=== PATIENT | male | born 1995 | race Caucasian/White ===

== ENCOUNTER 2021-08-22 18:55 | Emergency (ER) | payer OTHER ==
[~2021-08-22] VITALS: Ht 165.1 cm; Wt 59.0 kg
== END 2021-08-22 21:50 | disposition home or self-care (01) ==
LOC: ER 18:55
DX: M94.0 Chondrocostal junction syndrome [Tietze] (principal); R07.89 Other chest pain

== ENCOUNTER 2021-10-10 00:33 | Emergency (ER) | payer OTHER ==
[~2021-10-10] VITALS: Ht 165.1 cm; Wt 57.2 kg
[2021-10-10] MEDS ORDERED: ALBUTEROL2.5 MG/3 M IH (05:26)
[2021-10-10] MEDS ORDERED: ZYNCOF 20-400120 ML PO (05:26)
== END 2021-10-10 05:37 | disposition home or self-care (01) ==
LOC: ER 00:33
DX: R06.02 Shortness of breath (principal); R53.83 Other fatigue; R05.9 Cough, unspecified; Z03.818 Encounter for observation for suspected exposure to other biological agents ruled out

== ENCOUNTER 2022-01-12 01:46 | Emergency (ER) | payer OTHER ==
[~2022-01-12] VITALS: Ht 165.1 cm; Wt 57.2 kg
[~2022-01-12 01:46] MED LIST: ALBUTEROL2.5 MG/3 M IH; ZYNCOF 20-400120 ML PO
[2022-01-12] MEDS ORDERED: SYNTHROID50 MCG (02:29)
[2022-01-12] MEDS ORDERED: BUTALBITAL-ASA1 EACH PO (06:36)
== END 2022-01-12 06:45 | disposition home or self-care (01) ==
LOC: ER 01:46
DX: G44.89 Other headache syndrome (principal); E03.9 Hypothyroidism, unspecified; Z20.822 Contact with and (suspected) exposure to COVID-19

== ENCOUNTER 2022-05-01 16:08 | Emergency (ER) | payer OTHER ==
[~2022-05-01] VITALS: Ht 165.1 cm; Wt 49.9 kg
[~2022-05-01 16:08] MED LIST changes: +BUTALBITAL-ASA1 EACH PO; +SYNTHROID50 MCG
[2022-05-01] MEDS ORDERED: LEVOTHYROXINE25 MCG PO (16:51)
[2022-05-01] MEDS ORDERED: CARDIZEM30 MG PO (16:51)
[2022-05-01] MEDS ORDERED: ELIQUIS2.5 MG PO (16:51)
== END 2022-05-01 20:08 | disposition home or self-care (01) ==
LOC: ER 16:08
DX: R07.89 Other chest pain (principal); R11.0 Nausea; R42 Dizziness and giddiness

== ENCOUNTER 2024-05-06 20:15 | Inpatient (IN) | payer OTHER ==
[~2024-05-06] VITALS: Ht 167.6 cm; Wt 72.6 kg
[~2024-05-06 20:15] MED LIST changes: +CARDIZEM30 MG PO; +DOLOGESIC-DF 51 EACH PO; +ELIQUIS2.5 MG PO; +LEVOTHYROXINE25 MCG PO
[2024-05-06] MEDS ORDERED: TOPROL XL50 M1 (20:20)
[2024-05-06] MEDS ORDERED: FLECAINIDE ACE100 MG PO (20:20)
[2024-05-06] MEDS ORDERED: NITROGLYCERIN0.4 MG SL (20:20)
[2024-05-06 21:28] LABS: HEMATOCRIT 44.4 % (39.0-48.0); HEMOGLOBIN 15.1 g/dL (13-16.00); MEAN CELL VOLUME 89.5 fL (80.0-100.00); MEAN CORPUSCULAR HEMOGLOBIN 30.5 pg (27.00-32.0); MEAN CORPUSCULAR HGB CONC 34.1 g/dl (32.0-36.0); PLATELET COUNT 239 K/uL (150-450); RED BLOOD COUNT 4.96 M/uL (4.00-6.00); RED CELL DISTRIBUTION WIDTH 13.8 % (11.5-14.5)
[2024-05-06 21:48] LABS: INR 0.97; PARTIAL THROMBOPLASTIN TIME 27.3 SECONDS (22.0-34.0); PROTHROMBIN TIME 10.6 SECONDS (9.0-11.5)
[2024-05-06 21:53] LABS: ALBUMIN 4.1 gm/dL (3.4-5.0); BILIRUBIN TOTAL 0.32 mg/dL (0.3-1.2); CALCIUM 9.6 mg/dL (8.5-10.1); CREATININE SERUM 0.99 mg/dL (0.70-1.30); GFR 90.68; GLOBULINA 3.8 G/DL (2.4-3.5); POTASSIUM 3.98 mEq/L (3.5-5.1); TOTAL PROTEIN 7.9 gm/dL (6.4-8.2)
[2024-05-06] MEDS ORDERED: ATORVASTATIN CALCIUM 40 MG TABLET PO SCH (23:07)
[2024-05-06] MEDS ORDERED: CLOPIDOGREL BISULFATE 75 MG TABLET PO SCH (23:12)
[2024-05-06] MEDS ORDERED: NITROGLYCERIN IN 5 % DEXTROSE 250 ML IV SCH (23:13)
[2024-05-06] MEDS ORDERED: 0.9 % SODIUM CHLORIDE 1,000 ML IV SCH (23:15)
[2024-05-06] MEDS ORDERED: ACETAMINOPHEN 500 MG GEL..CAP PO PRN (23:15)
[2024-05-06] MEDS ORDERED: NITROGLYCERIN IN 5 % DEXTROSE 50 MG/250 ML BOTTLE IV ONE (23:33)
[2024-05-06] MEDS ORDERED: CLOPIDOGREL BISULFATE 75 MG TABLET PO ONE (23:33)
[2024-05-07 01:10] LABS: COCAINE NEGATIVE (NEGATIVE); METHADONE NEGATIVE (NEGATIVE); OPIATES NEGATIVE (NEGATIVE); THC ( Cannabinoids) NEGATIVE (NEGATIVE)
[2024-05-07] MEDS ORDERED: ACETAMINOPHEN 500 MG GEL..CAP PO ONE (01:39)
[2024-05-07] MEDS ORDERED: NITROGLYCERIN IN 5 % DEXTROSE 250 ML IV SCH (06:30)
[2024-05-07] MEDS ORDERED: ENOXAPARIN SODIUM 40 MG/0.4 ML SYRINGE SUBCUTANEO SCH (09:00)
[2024-05-07] MEDS ORDERED: METOPROLOL SUCCINATE 25 MG TAB.SR.24H PO SCH (09:00)
[2024-05-07] MEDS ORDERED: FAMOTIDINE/PF 20 MG in 0.9 % SODIUM CHLORIDE 8 ML IV PUSH SCH ×2 (09:00→21:00)
[2024-05-07] MEDS ORDERED: ASPIRIN 81 MG TAB.CHEW PO SCH (09:00)
[2024-05-07] MEDS ORDERED: METOPROLOL SUCCINATE 50 MG TAB.SR.24H PO SCH (17:00)
[2024-05-07] MEDS ORDERED: FAMOTIDINE/PF 20 MG/2 ML VIAL ONE (19:48)
[2024-05-08] MEDS ORDERED: FAMOTIDINE/PF 20 MG/2 ML VIAL ONE ×2 (08:57→20:48)
[2024-05-09] MEDS ORDERED: LEVOTHYROXINE SODIUM 25 MCG TABLET PO SCH (06:00)
[2024-05-09] MEDS ORDERED: FAMOTIDINE/PF 20 MG/2 ML VIAL ONE ×2 (12:00→20:22)
[2024-05-10] MEDS ORDERED: FAMOTIDINE/PF 20 MG/2 ML VIAL ONE (16:38)
[2024-05-11] MEDS ORDERED: FAMOTIDINE/PF 20 MG/2 ML VIAL ONE (08:23)
== END 2024-05-11 11:31 | disposition home or self-care (01) | DRG 311 ==
LOC: ER 20:16 → ICU-2 23:17 → MEDJ 23:17
PROVIDERS: Emergency Medicine; General Practice; ADMIT Internal Medicine; ATTEND Internal Medicine
PROC: B24BZZZ Ultrasonography of Heart with Aorta (ICD-10-PCS; principal; 2024-05-06)
PROC: 4A12X4Z Monitoring of Cardiac Electrical Activity, External Approach (ICD-10-PCS; 2024-05-07)
PROC: C23GYZZ Positron Emission Tomographic (PET) Imaging of Myocardium using Other Radionuclide (ICD-10-PCS; 2024-05-10)
DX: I20.0 Unstable angina (principal); I48.3 Typical atrial flutter

== ENCOUNTER 2025-02-21 08:50 | Emergency (ER) | payer OTHER ==
[~2025-02-21] VITALS: Ht 167.6 cm; Wt 73.9 kg
[~2025-02-21 08:50] MED LIST changes: +FLECAINIDE ACE100 MG PO; +NITROGLYCERIN0.4 MG SL; +TOPROL XL50 M1
[2025-02-21] MEDS ORDERED: TOPROL XL100 M1 PO (09:15)
[2025-02-21] MEDS ORDERED: SYNTHROID100 MCG PO (09:15)
[2025-02-21] MEDS ORDERED: LIPITOR20 MG PO (09:18)
[2025-02-21] MEDS ORDERED: PAXIL20 MG (09:18)
[2025-02-21 11:06] LABS: EOS # 0.19 (0.04-0.54); EOS % 2.5 % (0.7-7.0); HEMATOCRIT 46.9 % (40.1-51.0); HEMOGLOBIN 15.6 g/dL (13.7-17.5); LYMPH # 2.18 (1.18-3.74); LYMPH % 28.2 % (19.3-53.1); MEAN CORPUSCULAR HEMOGLOBIN 28.4 pg (25.6-32.2); MONO # 0.77 (0.24-0.82); NEUT # 4.47 (1.56-6.13); NEUT % 57.9 % (34.0-71.1); PLATELET COUNT 259 K/uL (163-369); RED BLOOD COUNT 5.49 M/uL (4.63-6.08); RED CELL DISTRIBUTION WIDTH 12.4 % (11.6-14.4)
[2025-02-21 12:11] LABS: ALBUMIN 4.3 gm/dL (3.4-5.0); BILIRUBIN TOTAL 0.61 mg/dL (0.3-1.2); CALCIUM 9.9 mg/dL (8.5-10.1); CREATININE SERUM 0.77 mg/dL (0.70-1.30); GFR 120.3; GLOBULINA 3.8 G/DL (2.4-3.5); POTASSIUM 5.05 mEq/L (3.5-5.1); TOTAL PROTEIN 8.1 gm/dL (6.4-8.2)
[2025-02-21] MEDS ORDERED: ACETAMINOPHEN 500 MG GEL..CAP PO ONE ×2 (15:00→15:10)
[2025-02-21] MEDS ORDERED: PROTONIX40 MG PO (15:17)
[2025-02-21] MEDS ORDERED: CARAFATE1 GM PO (15:17)
[2025-02-21] MEDS ORDERED: PEPCID AC20 MG PO (15:17)
[2025-02-21] MEDS ORDERED: ACETAMINOPHEN500 M1 PO (15:18)
== END 2025-02-21 15:28 | disposition home or self-care (01) ==
LOC: ER 08:52
PROVIDERS: Preventive Medicine Public Health & General Preventive Medicine
DX: K52.9 Noninfective gastroenteritis and colitis, unspecified (principal); K64.9 Unspecified hemorrhoids; R00.2 Palpitations
CPT/HCPCS: 36415; 70491; 74177; Q9965